=== PATIENT | male | born 1945 | race Caucasian/White ===

== ENCOUNTER 2017-01-03 21:28 | Inpatient (IN) | payer MEDICARE ==
--- NOTE | 2017-01-03 22:07 | ER Document Report ---
ED General - General Chief Complaint: Shortness Of Breath Stated Complaint: DIFFICULTY BREATHING Time Seen by Provider: 01/03/17 21:56 Notes: Patient is a 71-year-old male that comes emergency department by EMS for chief complaint of shortness of breath, patient has had increasing shortness of breath and weakness since last , before last patient was able to walk using a walker, he has not been able to get out of bed since that time. Past medical history of COPD, CHF, triple bypass surgery. Patient denies any chest pain, fever, patient has had increased cough with increased phlegm production. Patient states he has had no appetite and has not eaten in the past few days although he has continued to drink. He still sees cardiology Dr. Campbell and PCP Dr. Trinidad. Also on xarelto for afib per . TRAVEL OUTSIDE OF THE [place] IN LAST 30 DAYS: No - Related Data Allergies/Adverse Reactions: Sulfa (Sulfonamide Antibiotics) Allergy (Verified 01/03/17 23:18) Past Medical History - General Information source: Patient - Social History Smoking Status: Never Smoker Frequency of alcohol use: None Drug Abuse: None Lives with: Family Family History: Reviewed & Not Pertinent - Past Medical History Cardiac Medical History: Reports: Hx Coronary Artery Disease, Hx Heart Attack, Hx Hypercholesterolemia, Hx Hypertension, Hx Pulmonary Embolism Pulmonary Medical History: Reports: Hx COPD Endocrine Medical History: Reports: Hx Diabetes Mellitus Type 2 Past Surgical History: Reports: Hx Cardiac Surgery - triple bypass 2001, Hx Coronary Artery Bypass Graft - x3 - Immunizations Hx Diphtheria, Pertussis, Tetanus Vaccination: Yes Review of Systems - Review of Systems Constitutional: See HPI EENT: No symptoms reported Cardiovascular: See HPI Respiratory: See HPI Gastrointestinal: No symptoms reported Genitourinary: No symptoms reported Male Genitourinary: No symptoms reported Musculoskeletal: No symptoms reported Skin: No symptoms reported Hematologic/Lymphatic: No symptoms reported Neurological/Psychological: No symptoms reported Physical Exam - Vital signs Vitals: Resp BP Pulse Ox 19 103/65 95 01/03/17 21:39 01/03/17 21:39 01/03/17 21:39 Interpretation: Normal - General General appearance: Other - Patient sluggish, he is pale, he is generally deconditioned and unwell-appearing - HEENT Head: Normocephalic, Atraumatic Eyes: Normal Conjunctiva: Normal Extraocular movements intact: Yes Eyelashes: Normal Pupils: PERRL Pharynx: Normal Neck: Normal - Respiratory Respiratory status: No respiratory distress. No: Labored Chest status: Nontender Breath sounds: Rales - There are soft rales on exam, worse on the right in the base. No: Decreased air movement, Nonproductive cough, Wheezing Chest palpation: Normal - Cardiovascular Rhythm: Regular Heart sounds: Normal auscultation, S1 appreciated, S2 appreciated Murmur: Yes - Abdominal Inspection: Normal Distension: Distended - Patient is a slightly distended abdomen, nontender Bowel sounds: Normal Tenderness: Nontender. No: Tender, Guarding Organomegaly: No organomegaly - Back Back: Normal, Nontender - Extremities General upper extremity: Normal inspection, Nontender, Normal color, Normal ROM , Normal temperature General lower extremity: Normal inspection, Nontender, Normal color, Normal ROM , Normal temperature, Normal weight bearing. No: Pratima's sign - Neurological Neuro grossly intact: Yes Cognition: Normal Orientation: AAOx4 [place] Coma Scale Eye Opening: Spontaneous [place] Coma Scale Verbal: Oriented [place] Coma Scale Motor: Obeys Commands Jay[place] Coma Scale Total: 15 Speech: Normal Cranial nerves: Normal Cerebellar coordination: Normal Motor strength normal: LUE, RUE, LLE, RLE Sensory: Normal - Psychological Associated symptoms: Normal affect, Normal mood - Skin Skin Temperature: Warm Skin Moisture: Dry Skin Color: Normal Location of irregularity: Other - Multiple healing abrasions and scabs over the bilateral anterior lower extremities extending from the knee and on down Course - Re-evaluation Re-evalutation: Patient pale, unwell appearing, vital signs currently stable. Patient with some rails on examination, no significant lower extremity swelling, no tachypnea or respiratory distress. No hypoxia. Chest x-ray showing possible effusion, no overt CHF exacerbation, however BNP is significantly elevated at 30,000 which is significantly higher than previously. Patient hyponatremic. Patient admitting to drinking a lot of fluids, not taking his diuretics, not eating well. Giving Lasix, covering for potential pneumonia and due to his reported productive cough, will treat with sodium chloride at a rate of 350/h per MDcalc for hyponatremia. also states patient was having hematuria earlier today, no history of the same, CAT scan will be performed. Confirmed treatments and workup with Dr. Ye. Discussed with Dr. Jones, internal medicine, patient will be admitted to the hospital. 01/04/17 Patient suddenly became hypotensive on reevaluation (nurse informed me), appeared more pale, states that he feels like he is dying and he wants to . Patient actually does have DO NOT RESUSCITATE order which I confirmed with the , is at bedside. She states patient has been struggling for the past 10 months. Patient refuses additional IV access, additional fluids, central line, BiPAP therapy, or any intervention at this time. He does agree to Ativan , states he wants comfort measures and he wants to pass. states that she is in agreement with this. Confirmed with Dr. Shukla. Spoke with Dr. Jones again. 01/04/17 Patient much more comfortable after Ativan, patient's blood pressure actually rebounded and normalized, patient continues to be pale and is on well- appearing. Breathing is more shallow. Discussed with Dr. Jones again, patient to be admitted to the hospital for comfort measures. - Vital Signs Vital signs: Temp Pulse Resp BP Pulse Ox 97.8 F 71 19 103/52 L 97 01/03/17 23:36 01/03/17 22:02 01/04/17 05:28 01/04/17 05:28 01/04/17 05:28 - Laboratory Result Diagrams: 01/03/17 21:57 01/03/17 21:57 Laboratory results interpreted by me: 01/03/17 01/03/17 01/03/17 21:55 21:57 21:57 Hgb 10.4 L Hct 34.9 L MCV 73 L MCH 21.6 L MCHC 29.7 L RDW 23.2 H Plt Count 130 L Seg Neuts % (Manual) 81 H Band Neutrophils % 2 L Lymphocytes % (Manual) 6 L Sodium 116.5 L* Chloride 78 L BUN 51 H Glucose 119 H POC Glucose 144 H Total Bilirubin 2.8 H Direct Bilirubin 1.6 H Creatine Kinase 22 L NT-Pro-B Natriuret Pep Total Protein 6.0 L Albumin 3.2 L Urine Urobilinogen 01/03/17 01/03/17 21:57 23:30 Hgb Hct MCV MCH MCHC RDW Plt Count Seg Neuts % (Manual) Band Neutrophils % Lymphocytes % (Manual) Sodium Chloride BUN Glucose POC Glucose Total Bilirubin Direct Bilirubin Creatine Kinase NT-Pro-B Natriuret Pep 41666 H Total Protein Albumin Urine Urobilinogen 4.0 H Discharge - Discharge Clinical Impression: Weakness, Shortness of breath, Hyponatremia CHF exacerbation Qualifiers: Congestive heart failure type: unspecified congestive heart failure type Qualified Code(s): I50.9 - Heart failure, unspecified Condition: Poor Disposition: ADMITTED INPATIENT Admitting Provider: Hospitalist Unit Admitted: Medical Floor
[2017-01-03 22:24] LABS: HEMATOCRIT 34.9 % (37.9-51.0); HEMOGLOBIN 10.4 g/dL (13.5-17.0); HGB HCT DIFFERENCE -3.7; MEAN CORPUSCULAR HEMOGLOBIN 21.6 pg (27.0-33.4); MEAN CORPUSCULAR HGB CONC 29.7 g/dL (32.0-36.0); MEAN CORPUSCULAR VOLUME 73 fl (80-97); RED BLOOD COUNT 4.81 10^6/uL (4.35-5.55); RED CELL DISTRIBUTION WIDTH 23.2 % (11.5-14.0); WHITE BLOOD COUNT 9.4 10^3/uL (4.0-10.5)
[2017-01-03 22:42] LABS: ALANINE AMINOTRANSFERASE 28 U/L (21-72); ALBUMIN 3.2 g/dL (3.5-5.0); ALKALINE PHOSPHATASE 105 U/L (38-126); ANION GAP 12 (5-19); ASPARTATE AMINO TRANSFERASE 35 U/L (17-59); BILIRUBIN,DIRECT 1.6 mg/dL (0.0-0.4); BILIRUBIN,TOTAL 2.8 mg/dL (0.2-1.3); BLOOD UREA NITROGEN 51 mg/dL (7-20); CALCIUM 8.6 mg/dL (8.4-10.2); CARBON DIOXIDE 27 mmol/L (22-30); CHLORIDE 78 mmol/L (98-107); CREATINE KINASE 22 U/L (55-170); CREATINE KINASE MB 0.9 ng/mL (<4.55); CREATININE RESULT 0.99 mg/dL (0.52-1.25); GLUCOSE 119 mg/dL (75-110); POTASSIUM 3.6 mmol/L (3.6-5.0)
[2017-01-03 22:44] LABS: BAND NEUTROPHILS % (MANUAL) 2 % (3-5); BASOPHILS % (MANUAL) 0 % (0-2); EOSINOPHILS % (MANUAL) 0 % (0-6); LYMPHOCYTES % (MANUAL) 6 % (13-45); NUCLEATED RED BLOOD CELLS 2 /100 WBC (0); TOTAL CELLS COUNTED 100
[2017-01-03 22:45] LABS: MICROCYTOSIS 2+
[2017-01-03 22:46] LABS: ANISOCYTOSIS 2+; BURR CELLS SLIGHT; HELMET CELLS SLIGHT; HYPOCHROMASIA 2+; OVALOCYTES SLIGHT; POIKILOCYTOSIS 3+; POLYCHROMASIA SLIGHT; SCHISTOCYTES SLIGHT; SODIUM 116.5 mmol/L (137-145); TARGET CELLS SLIGHT
[2017-01-03 22:47] LABS: TROPONIN I 0.041 ng/mL
--- NOTE | 2017-01-03 22:47 | RADIOLOGY REPORT (SQ) ---
EXAM DESCRIPTION: CHEST SINGLE VIEW COMPLETED DATE/TIME: 01/03/2017 10:38 pm REASON FOR STUDY: shortness of breath COMPARISON: 04/29/2016 EXAM PARAMETERS: NUMBER OF VIEWS: One view. TECHNIQUE: Single frontal radiographic view of the chest acquired. RADIATION DOSE: NA LIMITATIONS: None. FINDINGS: LUNGS AND PLEURA: Left basilar airspace disease -effusion. No pneumothorax. Right lung a ppears clear. MEDIASTINUM AND HILAR STRUCTURES: Stable. HEART AND VASCULAR STRUCTURES: Stable cardiomegaly. BONES: No acute findings. HARDWARE: CABG. Cardiac defibrillator. OTHER: No other significant finding. IMPRESSION: Left basilar airspace disease -effusion, recurrent or chronic. TECHNICAL DOCUMENTATION: JOB ID: [id number]
[2017-01-03] MEDS ORDERED: NORMAL SALINE 1000 ML 1,000 ML IV PRN (23:54)
[2017-01-03] MEDS ORDERED: LEVOFLOXACIN 750 MG/D5W RTU 150 ML IV ONE (23:54)
[2017-01-03] MEDS ORDERED: FUROSEMIDE INJ/PF 40 MG/4 ML SDV IV ONE (23:55)
[2017-01-03 23:59] LABS: APPEARANCE,URINE SLIGHTLY-CLOUDY; BILIRUBIN,URINE NEGATIVE (NEGATIVE); GLUCOSE, URINE NEGATIVE (NEGATIVE); KETONES,URINE NEGATIVE (NEGATIVE); LEUKOCYTE ESTERASE,URINE NEGATIVE (NEGATIVE); NITRITE,URINE NEGATIVE (NEGATIVE); PROTEIN,URINE NEGATIVE (NEGATIVE); URINE SPECIFIC GRAVITY 1.013
--- NOTE | 2017-01-04 00:14 | EKG REPORT ---
SEVERITY:- ABNORMAL ECG - SINUS RHYTHM PAIRED VENTRICULAR PREMATURE COMPLEXES LEFT ATRIAL ABNORMALITY NONSPECIFIC INTRAVENTRICULAR CONDUCTION DELAY ANTEROLATERAL INFARCT, AGE INDETERMINATE : Confirmed by: Elba Ortiz 04-Jan-2017 00:13:32
--- NOTE | 2017-01-04 01:05 | RADIOLOGY REPORT (SQ) ---
EXAM DESCRIPTION: CT ABD/PELVIS NO ORAL OR IV COMPLETED DATE/TIME: 01/04/2017 12:34 am REASON FOR STUDY: hematuria COMPARISON: CR, 04/12/2016, 04/06/2014. CR, chest 612 17, 04/29/2016, 09/30/2009. TECHNIQUE: CT scan of the abdomen and pelvis performed without intravenous or oral contrast. Images reviewed with lung, soft tissue, and bone windows. Reconstructed coronal and sagittal MPR images revi ewed. All images stored on PACS. All CT scanners at this facility use dose modulation, iterative reconstruction, and/or weight based d osing when appropriate to reduce radiation dose to as low as reasonably achievable (ALARA). [facility]: Dose Right [facility]: CareDose [facility]: Dose Right [facility]: Teradose 4D [facility]: [employer] RADIATION DOSE: 391 LIMITATIONS: None. FINDINGS: LOWER CHEST: Moderate coronary arterial calcification. Moderate cardiac enlargement. Wit h moderate low left pleural effusion. Small right pleural effusion. Sternotomy. Small bilateral lo wer lobar atelectasis or scar. 3.2 cm pleural-based emphysematous cyst of the right lower lung. Med el sternotomy. Left cardiac stimulation device and leads. NON-CONTRASTED LIVER, SPLEEN, ADRENALS: Evaluation limited by lack of IV contrast. No identified sign ificant masses. PANCREAS: No masses. No peripancreatic inflammatory changes. GALLBLADDER: No identified stones by CT criteria. No inflammatory changes to suggest cholecystitis. RIGHT KIDNEY AND URETER: No suspicious masses. Assessment limited by lack of IV contrast. Punctate atherosclerotic calcification or small nephrolithiasis. No hydronephrosis or hydroureter. Moderate bilateral perinephric fat stranding. LEFT KIDNEY AND URETER: No suspicious masses. Assessment limited by lack of IV contrast. No signifi cant calcifications. No hydronephrosis or hydroureter. Moderate bilateral perinephric fat strandin g. AORTA AND RETROPERITONEUM: No aneurysm. No retroperitoneal masses or adenopathy. Extensive ather osclerotic calcification. BOWEL AND PERITONEAL CAVITY: Mild diverticulitis pattern with small fluid adjacent to the proximal le ft sigmoid with. Small fluid in the left pericolic space at the level of the kidneys. APPENDIX: Normal. PELVIS, BLADDER, AND ABDOMINAL WALL:No abnormal masses. No free fluid. Bladder normal. Small bilater al inguinal fat only herniation. BONES: Moderate central L2 vertebral compression deformity of unknown chronicity not discerned on pre vious available radiographs. OTHER: No other significant finding. IMPRESSION: 1. Mild sigmoid diverticulitis pattern. 2. Qhlp-aq-wonodixy nonspecific bilateral nep hric perinephric fat stranding ; cannot exclude pyelonephritis. 3. Moderate L2 compression deformit y. 4. Moderate-small bilateral pleural effusions, left more than right. TECHNICAL DOCUMENTATION: JOB ID: [id number] Quality ID # [id number]: Final reports with documentation of one or more dose reduction techniques (e.g., Au tomated exposure control, adjustment of the mA and/or kV according to patient size, use of iterative reconstruction technique) 2010 [employer]- All Rights Reserved
[2017-01-04] MEDS ORDERED: LORAZEPAM INJ 2 MG/1 ML VIAL IV ONE ×2 (02:24→05:05)
[2017-01-04] MEDS ORDERED: ACETAMINOPHEN 325 MG TABLET PO PRN (05:10)
[2017-01-04] MEDS ORDERED: IPRATROPIUM/ALBUTEROL 0.5-2.5 MG/3 ML AMPUL NEB PRN (05:10)
[2017-01-04] MEDS ORDERED: ONDANSETRON HCL INJ/PF 4 MG/2 ML SDV IV PRN (05:10)
[2017-01-04] MEDS ORDERED: LORAZEPAM INJ 2 MG/1 ML VIAL IV PRN (05:10)
[2017-01-04 05:34] VITALS: BP 103/52
--- NOTE | 2017-01-04 06:45 | PDOC H&P ---
History of Present Illness Admission Date/PCP: 01/04/17 02:15 ALBEROT STARKEY MD Patient complains of: Supra shortness of breath History of Present Illness: JUANI GARNETT is a 71 year old male with a past medical history of end-stage heart failure, COPD, coronary artery disease status post triple bypass and chronic kidney disease. He has been in his usual state of health until approximately 2 weeks ago discontinuing medications and over the last week stopped eating. The patient's debilitated state and compromised lifestyle has become intolerable requesting comfort measures only he is referred to the hospitalist for admission. Patient's is at bedside who confirms the above and agrees to his wishes. Past Medical History Cardiac Medical History: Reports: Congestive Heart Failure, Coronary Artery Disease, Myocardial Infarction, Hyperlipidema, Hypertension, Pulmonary Embolism Pulmonary Medical History: Reports: Chronic Obstructive Pulmonary Disease (COPD) Endocrine Medical History: Reports: Diabetes Mellitus Type 2 Past Surgical History Past Surgical History: Reports: Coronary Artery Bypass Graft - x3 Social History Information Source: Patient, Relative, Emergency Med Personnel Lives with: Spouse/Significant other Smoking Status: Current Every Day Smoker Drugs: None - Advance Directive Resuscitation Status: Comfort Measures Only Family History Family History: Reviewed & Not Pertinent Parental Family History Reviewed: No - Comfort measures only Children Family History Reviewed: No Sibling(s) Family History Reviewed.: No Medication/Allergy Home Medications: Torsemide [Demadex] 20 mg PO BID #10 tablet 04/29/16 Allergies/Adverse Reactions: Sulfa (Sulfonamide Antibiotics) Allergy (Verified 01/03/17 23:18) Review of Systems ROS unobtainable: Due to mental status - Comfort measures only Physical Exam Vital Signs: Temp Pulse Resp BP Pulse Ox 97.8 F 71 19 103/52 L 97 01/03/17 23:36 01/03/17 22:02 01/04/17 05:28 01/04/17 05:28 01/04/17 05:28 Intake & Output 01/02/17 01/03/17 01/04/17 11:59 11:59 11:59 Output Total 300 Balance -300 General appearance: PRESENT: other - Refused comfort measures only though patient appears chronically ill with temporal wasting and cachexia with cyanosis. Results Impressions: Chest X-Ray 01/03/17 22:05 IMPRESSION: Left basilar airspace disease -effusion, recurrent or chronic. Abdomen/Pelvis CT 01/03/17 23:55 IMPRESSION: 1. Mild sigmoid diverticulitis pattern. 2. Tayl-vn-hnnfalnx nonspecific bilateral nephric perinephric fat stranding ; cannot exclude pyelonephritis. 3. Moderate L2 compression deformity. 4. Moderate-small bilateral pleural effusions, left more than right. Assessment & Plan - Diagnosis (1) Congestive heart failure Is this a current diagnosis for this admission?: YesPlan: Patient is in severe end-stage heart failure with hypoxia and volume overload requesting comfort measures only without evidence of depression his wishes are verified by his at bedside and comfort measures with morphine and Ativan as needed are initiated. - Time Time Spent: 30 to 50 Minutes - Inpatient Certification Medical Necessity: Need for Pain Control
[2017-01-04] MEDS: MORPHINE SULFATE 10 MG/ML INJ IV PRN (16:29)
[2017-01-05] MEDS: MORPHINE SULFATE 10 MG/ML INJ IV PRN (09:25)
[2017-01-05] MEDS ORDERED: MORPHINE SULFATE 60 MG/60 ML RTUINJ IV PRN (10:46)
[2017-01-05] MEDS ORDERED: LORAZEPAM INJ 2 MG/1 ML VIAL IV PRN (13:19)
[2017-01-05] MEDS ORDERED: NICOTINE 21 MG/24 HR PATCH.TD24 TD PRN (13:23)
--- NOTE | 2017-01-05 14:02 | PROGRESS NOTE E ---
Progress Note NAME: JUANI GARNETT : 1945 AGE: 71Y DATE: 01/05/2017 ROOM: 436 SUBJECTIVE: The patient is lying in bed. He is surrounded by his family. According to his , the patient awakened about 4 a.m. this morning and was distressed, stating he was thirsty and so forth. I discussed SENIOR FINANCE MANAGER pump with the family who is in agreeance to this and patient is unable to voice any specific concerns at this time. REVIEW OF SYSTEMS: Rest of review of systems is unobtainable. MEDICATIONS: Altered for patient's comfort. PHYSICAL EXAMINATION: GENERAL: On examination, the patient is a frail, chronically ill-appearing 71-year-old male who is currently minimally responsive. He does not appear in distress at this time. VITAL SIGNS: Heart rate 82, respirations 19, shallow, irregular. HEENT: Tongue is midline. No JVP. CARDIOVASCULAR SYSTEM: Magnet is in place. EXTREMITIES: No edema. DIAGNOSTICS: Have been deferred given patient's comfort. IMPRESSION AND PLAN: 1. END-STAGE CONGESTIVE HEART FAILURE. The patient is on comfort care measures only. Has appeared uncomfortable and anxious. Will start SENIOR FINANCE MANAGER pump and also continue p.r.n. Ativan. 2. CORONARY ARTERY DISEASE. The patient is on comfort measures. 3. HYPERLIPIDEMIA. The patient is on comfort measures. 4. HISTORY OF PULMONARY EMBOLISM. The patient is on comfort measures. 5. HYPERTENSION. Patient is on comfort measures. 6. CHRONIC OBSTRUCTIVE PULMONARY DISEASE. P.R.N. oxygen. 7. DIABETES MELLITUS TYPE 2. Comfort measures only. 8. TOBACCO DEPENDENCY. Will add p.r.n. nicotine patch. DISPOSITION: The patient is a DO NOT RESUSCITATE, DO NOT INTUBATE with comfort care measures only. Pending patient's symptomatology and diagnostic findings, will re-evaluate as needed. Time spent on this followup including assessment, plan, physical examination, and family meeting and education is 25 minutes. DICTATING PHYSICIAN: CHAI VILLANUEVA NP [id number] PHY#: [id number] ID: [id number] JOB#: [id number] ACCT: [id number] cc: >
--- NOTE | 2017-01-06 08:58 | Physician Advisory Note ---
Physician Advisor ProgressNote .: Pursuant to the plan for [facility], I have reviewed the medical record for this patient. Physician Advisor Statement: Please consider documentin. "Acute on chronic hyponatremia, suspect due to ____" - [Na 116.5, baseline was 130-133] Thanks! CK
[2017-01-06] MEDS ORDERED: ONDANSETRON HCL INJ/PF 4 MG/2 ML SDV IV PRN (14:00)
--- NOTE | 2017-01-06 16:58 | DEATH SUMMARY E ---
Summary NAME: JUANI GARNETT : 1945 AGE: 71Y ADMITTED: 01/04/2017 : DATE OF EXPIRATION: 01/06/2017 TIME OF : 1042 hours. CODE STATUS: Was DO NOT RESUSCITATE, DO NOT INTUBATE with comfort care measures only. PRIMARY CARE PROVIDER: Terrance Trinidad MD FINAL DIAGNOSES: 1. End-stage congestive heart failure. 2. Coronary artery disease. 3. Hyperlipidemia. 4. History of pulmonary embolism. 5. Hypertension. 6. Chronic obstructive pulmonary disease. 7. Diabetes mellitus type 2. 8. Tobacco dependency. HISTORY OF PRESENT ILLNESS: The patient was a 71-year-old male with a past medical history of end-stage heart failure and COPD. The patient presented to the emergency department due to severe shortness of breath. The patient had been in a steady state of decline over the past several months with symptoms worsening approximately 2 weeks prior to presentation when the patient discontinued his medications and stopped eating. The patient was in a significantly debilitated state, compromised lifestyle that had become intolerable to him, and he became quite anxious. Upon presentation to the emergency department, the family requested only keeping the patient comfortable. The patient was referred to the hospitalists for admission and management. HOSPITAL COURSE: The patient was admitted to continuous telemetry unit. The patient was attempted to control his pain with IV morphine; however, this was not successful. The patient was subsequently placed on a CAP AND HAT PRODUCTION SUPERVISOR pump, which did give the patient relief and relief of air hunger. The patient continued to decompensate during his stay and on 01/06/2017, at 1042 hours, the patient was found to be asystole and was pronounced . The patient was surrounded by his family and it was believed that he was comfortable in his last days. certificate has been done and placed on the patient's chart. TIME SPENT: Time spent on this summary including assessment and plan, previous visit with the family and summary was 15 minutes. DICTATING PHYSICIAN: CHAI VILLANUEVA NP [id number] PHY#: [id number] ID: [id number] JOB#: [id number] ACCT: [id number] cc:CHAI VILLANUEVA NP >
== END 2017-01-06 14:00 | DRG 292 ==
LOC: ER 21:28 → UNDOADMIN 01-04 02:15 → EH 01-04 02:15 → 4S 01-04 05:10 → EH 01-04 06:33
PROVIDERS: ADMIT Internal Medicine; ATTEND Internal Medicine
DX: I13.0 Hypertensive heart and chronic kidney disease with heart failure and stage 1 through stage 4 chronic kidney disease, or unspecified chronic kidney disease (principal); E87.1 Hypo-osmolality and hyponatremia; Z51.5 Encounter for palliative care; R64 Cachexia; Z68.1 Body mass index [BMI] 19.9 or less, adult; J44.9 Chronic obstructive pulmonary disease, unspecified; I25.10 Atherosclerotic heart disease of native coronary artery without angina pectoris; I25.2 Old myocardial infarction; N18.9 Chronic kidney disease, unspecified; I50.9 Heart failure, unspecified; Z86.711 Personal history of pulmonary embolism; E11.22 Type 2 diabetes mellitus with diabetic chronic kidney disease; F17.200 Nicotine dependence, unspecified, uncomplicated; Z88.2 Allergy status to sulfonamides; R09.02 Hypoxemia; E78.5 Hyperlipidemia, unspecified; Z95.1 Presence of aortocoronary bypass graft
CPT/HCPCS: 36415; 71010; 74176; 80053; 81001; 82550; 82553; 82962; 83880; 84484; 85025; 87040; 93005; 93010; 96365; 96375; 99285; J1940; J1956; J2060; J2270; J7030